=== PATIENT | male | born 1965 | race Caucasian/White ===

== ENCOUNTER → 2021-03-30 11:50 | Outpatient (CLI) | payer OTHER, SELFPAY ==
[2021-03-30 19:08] LABS: Hemoglobin A1C% w Est Avg Glu 7.5 % (4.0-6.0)
[2021-03-30 19:28] LABS: TSH w/ Reflex to FT4 2.66 uIU/mL (0.47-4.68)
== END ==
PROVIDERS: PCP Family Medicine; Referring Provider Physician Assistant Medical; Visit Provider Physician Assistant Medical
DX: E78.5 Hyperlipidemia, unspecified (principal); I10 Essential (primary) hypertension; R73.9 Hyperglycemia, unspecified
CPT/HCPCS: 83036; 84443

== ENCOUNTER → 2021-03-31 09:03 | Outpatient (CLI) | payer OTHER, SELFPAY ==
[2021-04-04 08:35] LABS: Fecal Immunochemical Test Negative (Negative)
== END ==
PROVIDERS: PCP Family Medicine; Referring Provider Physician Assistant Medical; Visit Provider Physician Assistant Medical
DX: E78.5 Hyperlipidemia, unspecified (principal); I10 Essential (primary) hypertension; R73.9 Hyperglycemia, unspecified
CPT/HCPCS: 82274

== ENCOUNTER → 2021-07-18 14:48 | Outpatient (CLI) | payer OTHER, SELFPAY | PROVIDERS: PCP Physician Assistant Medical; Visit Provider Family Medicine | DX: J02.9 Acute pharyngitis, unspecified (principal) | CPT/HCPCS: 87070; 87077; 87147; 87186 ==

== ENCOUNTER → 2021-07-29 08:23 | Outpatient (CLI) | payer OTHER, SELFPAY ==
[2021-07-29 21:59] LABS: COVID19 - ORCAS (NP or Nasal) Negative (Negative)
== END ==
PROVIDERS: PCP Physician Assistant Medical; Visit Provider Physician Assistant Medical
DX: Z20.822 Contact with and (suspected) exposure to COVID-19 (principal)
CPT/HCPCS: U0003

== ENCOUNTER → 2021-10-11 08:20 | Outpatient (CLI) | payer OTHER, SELFPAY | PROVIDERS: PCP Physician Assistant Medical; Visit Provider Physician Assistant | DX: J02.9 Acute pharyngitis, unspecified (principal) | CPT/HCPCS: 87070 ==

== ENCOUNTER → 2022-02-13 16:27 | Outpatient (CLI) | payer OTHER, SELFPAY | PROVIDERS: PCP Physician Assistant Medical; Visit Provider Physician Assistant | DX: R31.9 Hematuria, unspecified (principal) | CPT/HCPCS: 87086 ==

== ENCOUNTER 2022-02-15 13:59 | Emergency (ER) | payer OTHER, SELFPAY ==
[2022-02-15 14:24] VITALS: BP 177/86; PULSE 100; RESP 15; TEMP 36.1; O2SAT 98; BMI 38.2
[2022-02-15 15:02] LABS: Appearance Urine UA CLEAR; Bilirubin Urine UA NEGATIVE (NEGATIVE); Color Urine UA YELLOW; Glucose Urine UA TRACE g/dL (Negative); Ketones Urine UA NEGATIVE (NEGATIVE); Leukocyte Esterase Urine UA NEGATIVE (NEGATIVE); Nitrite Urine UA NEGATIVE (Negative); Occult Blood Urine UA 1+ (Negative); Protein Urine UA NEGATIVE (Negative); Urobilinogen Urine UA 0.2 E.U./dL (0.2)
[2022-02-15 15:35] LABS: Bacteria Urine None Seen; Culture Indicated Urine Cult Not Indicated; RBC Urine 1-5/HPF (0-5/HPF); Squamous Epithelial Cell Urine None Seen (0-5/HPF); WBC Urine None Seen (0-5/HPF)
[2022-02-15 16:56] LABS: Prothrombin Time 11.8 SECONDS (10.1-12.7)
[2022-02-15 17:15] LABS: Add Manual Diff / Slide Review NO; Basophils Absolute Auto 0 /uL (0-100); Basophils Percent Auto 0.7 % (0-2); Eosinophils Absolute Auto 100 /uL (0-450); Eosinophils Percent Auto 2.1 % (2-4); Hematocrit 46.8 % (41-53); Lymphocytes Absolute Auto 1400 /uL (1100-4500); Lymphocytes Percent Auto 20.8 % (25-40); Mean Corpuscular HGB Conc 34.1 % (30-36); Mean Corpuscular Hemoglobin 29.3 PG (26-34); Monocytes Absolute Auto 600 /uL (0-900); Monocytes Percent Auto 8.4 % (3-14); Neutrophils Absolute Auto 4700 /uL (1500-7000); Platelet Count 188 X10^3/uL (150-400); Red Blood Cell Count 5.44 X10^6/uL (4.5-5.9); Red Cell Distribution Width 13.4 % (11.6-14.8)
[2022-02-15 17:47] LABS: Alanine Aminotransferase 52 IU/L (<50); Albumin 4.5 g/dL (3.5-5.0); Albumin Globulin Ratio 1.5 (1.0-2.8); Alkaline Phosphatase 78 U/L (38-126); Aspartate Aminotransferase 33 IU/L (17-59); BUN Creatinine Ratio 23.8 (6-22); Bilirubin Total 0.7 mg/dL (0.2-1.3); Blood Urea Nitrogen 20 mg/dL (9-20); Calcium 9.9 mg/dL (8.4-10.2); Carbon Dioxide 30 mmol/L (22-32); Chloride 98 mmol/L (98-107); Estimated Glomerular Filt Rate > 60 mL/min (>60); Globulin 3.1 g/dL (1.7-4.1); Glucose 128 mg/dL (70-100); HEMOLYSIS 41 (0-50); Lipase 42 U/L (23-300); Potassium 3.8 mmol/L (3.4-5.1); Sodium 136 mmol/L (137-145); Total Protein 7.6 g/dL (6.3-8.2)
--- NOTE | 2022-02-15 19:35 | ED_ITS ---
HPI - General Adult General Chief complaint: Abdominal Pain Stated complaint: abd pain after fall/injury Time Seen by Provider: 02/15/22 19:34 Source: patient Mode of arrival: Ambulatory History of Present Illness HPI narrative: 56-year-old gentleman with a history of hypertension and diabetes had a fall, mechanical, on February 12 where he landed flat on his back. He was able to get and go about his daily routine but following day he was having increasing pain. He was seen in the clinic on [place] with x-rays done that did not show any acute bony abnormalities. At the time he was noted to have hematuria and that hematuria has persisted. Pain has essentially resolved but concern for intra-abdominal pathology secondary to the fall continues given the persistent hematuria. Denies any fever, cough, chills, chest pain, palpitations, abdominal pain, vomiting or diarrhea. Related Data Previous Rx's Medication Instructions Recorded cetirizine 10 mg tablet (Zyrtec) 10 mg PO DAILY PRN allergy 03/30/21 symptoms #90 tabs hydrochlorothiazide 25 mg tablet 25 mg PO DAILY #90 tabs 03/30/21 losartan 100 mg tablet 100 mg PO DAILY #90 tabs 03/30/21 metformin 500 mg tablet See Rx Instructions .Route 10/11/21 .COMPLEX #90 tabs nirmatrelvir 300 mg (150 mg See Rx Instructions PO .COMPLEX 11/15/21 x2)-ritonavir 100 mg tablet,dose #30 ea pack(EUA) (Paxlovid) cyclobenzaprine 10 mg tablet 10 mg PO TID PRN painful muscle 02/13/22 spasm #15 tabs hydrocodone 10 mg-acetaminophen 1 tab PO BEDTIME PRN pain #5 tabs 02/13/22 325 mg tablet Allergies Allergy/AdvReac Type Severity Reaction Status Date / Time lisinopril [LISINOPRIL] Allergy Unknown Verified 02/15/22 14:23 Review of Systems Review of Systems Narrative: Remainder of complete review of systems is otherwise unremarkable except for that included in the HPI. Patient History Medical History (Updated 02/15/22 @ 22:04 by Brandi Rucker MD) Allergies (~1965) Eczema (~1965) Encounter for CDL (commercial driving license) exam Encounter for examination for driving license Kidney stones Shoulder pain (~2014) Wears glasses Surgical History Anesthesia History of appendectomy (~1993) History of cholecystectomy (~1995) Social History Smoking Status: Never smoker Smoking Status: Never smoker alcohol intake frequency: holidays/special occasions only Substance Use Type: does not use Exam Initial Vital Signs Initial Vital Signs: Vital Signs Temperature 97.0 F L 02/15/22 14:24 Pulse Rate 100 H 02/15/22 14:24 Respiratory Rate 15 02/15/22 14:24 Blood Pressure 177/86 H 02/15/22 14:24 Pulse Oximetry 98 02/15/22 14:24 Oxygen Delivery Method 02/15/22 14:24 General: Healthy appearing, in no acute distress. Able to give a complete and coherent history. Well-nourished well-developed HEENT: Moist mucous membranes, normal sclera with reactive pupils, Respiratory: Lungs are clear to auscultation, no wheezing no rales no rhonchi. Full and symmetrical air movement Cardiac: Regular rate and rhythm no murmurs no bruits Abdomen: Soft, nontender, good bowel tones, no flank pain Spine: He has some resolving ecchymosis at the base of his spine over his sacrum. There is no skin breakdown and minimal tenderness to palpation at that site. Skin: Warm and dry, no rashes Neurologic: Grossly neurologically intact with no obvious asymmetries or abnormalities Extremities: No trauma, well perfused Psych: Cooperative, appropriate insight and affect Course Orders Ordered: ED Orders 02/15/22 14:28 EKG-12 Lead Stat 02/15/22 14:30 Urinalysis and Microscopic Stat 02/15/22 16:40 Complete Blood Count AUTO DIFF Stat Comprehensive Metabolic Panel Stat Lipase Stat Prothrombin Time INR Stat 02/15/22 19:47 CT abdomen pelvis w con Stat Vital Signs Vital signs: Vital Signs - 8 hr 02/15/22 14:24 02/15/22 20:14 02/15/22 20:14 Temperature 97.0 F L Pulse Rate 100 H 99 H Respiratory Rate 15 Blood Pressure 177/86 H 166/91 H Pulse Oximetry 98 98 Oxygen Delivery Method Room Air Room Air Medical Decision Making Lab Data Result diagrams: 02/15/22 16:40 12/07/22 16:40 Labs: Lab Results 02/15/22 02/15/22 02/15/22 Range/Units 14:30 16:40 16:40 WBC 7.0 (4.5-11.0) X10^3/uL RBC 5.44 (4.5-5.9) X10^6/uL Hgb 16.0 (13.5-17.5) g/dL Hct 46.8 (41-53) % MCV 86.0 (80-100) fL MCH 29.3 (26-34) PG MCHC 34.1 (30-36) % RDW 13.4 (11.6-14.8) % Plt Count 188 (150-400) X10^3/uL Neut % (Auto) 68.0 (50-75) % Lymph % (Auto) 20.8 L (25-40) % [place] % (Auto) 8.4 (3-14) % Eos % (Auto) 2.1 (2-4) % Baso % (Auto) 0.7 (0-2) % Neut # (Auto) 4700 (2395-8907) /uL Lymph # (Auto) 1400 (7201-0526) /uL [place] # (Auto) 600 (0-900) /uL Eos # (Auto) 100 (0-450) /uL Baso # (Auto) 0 (0-100) /uL PT 11.8 (10.1-12.7) SECONDS INR 1.0 (0.9-1.3) Sodium (137-145) mmol/L Potassium (3.4-5.1) mmol/L Chloride (98-107) mmol/L Carbon Dioxide (22-32) mmol/L BUN (9-20) mg/dL Creatinine (0.66-1.25) mg/dL Estimated GFR (>60) mL/min BUN/Creatinine Ratio (6-22) Glucose (70-100) mg/dL Calcium (8.4-10.2) mg/dL Total Bilirubin (0.2-1.3) mg/dL AST (17-59) IU/L ALT (<50) IU/L Alkaline Phosphatase (38-126) U/L Total Protein (6.3-8.2) g/dL Albumin (3.5-5.0) g/dL Globulin (1.7-4.1) g/dL Albumin/Globulin Ratio (1.0-2.8) Lipase (23-300) U/L Urine Color Yellow Urine Appearance Clear Urine pH 5.0 (4.5-8.0) Ur Specific [place] 1.020 (1.000-1.035) Urine Protein Negative (Negative) Urine Glucose (UA) Trace H (Negative) g/dL Urine Ketones Negative (NEGATIVE) Urine Occult Blood 1+ H (Negative) Urine Nitrate Negative (Negative) Urine Bilirubin Negative (NEGATIVE) Urine Urobilinogen 0.2 (0.2) E.U./dL Ur Leukocyte Esterase Negative (NEGATIVE) Urine RBC 1-5/hpf (0-5/HPF) Urine WBC None seen (0-5/HPF) Ur Squamous Epith Cells None seen (0-5/HPF) Urine Bacteria None seen (None) Ur Culture Indicated? Cult not indicated 02/15/22 Range/Units 16:40 WBC (4.5-11.0) X10^3/uL RBC (4.5-5.9) X10^6/uL Hgb (13.5-17.5) g/dL Hct (41-53) % MCV (80-100) fL MCH (26-34) PG MCHC (30-36) % RDW (11.6-14.8) % Plt Count (150-400) X10^3/uL Neut % (Auto) (50-75) % Lymph % (Auto) (25-40) % [place] % (Auto) (3-14) % Eos % (Auto) (2-4) % Baso % (Auto) (0-2) % Neut # (Auto) (8004-2656) /uL Lymph # (Auto) (6935-4534) /uL [place] # (Auto) (0-900) /uL Eos # (Auto) (0-450) /uL Baso # (Auto) (0-100) /uL PT (10.1-12.7) SECONDS INR (0.9-1.3) Sodium 136 L (137-145) mmol/L Potassium 3.8 (3.4-5.1) mmol/L Chloride 98 (98-107) mmol/L Carbon Dioxide 30 (22-32) mmol/L BUN 20 (9-20) mg/dL Creatinine 0.84 (0.66-1.25) mg/dL Estimated GFR > 60 (>60) mL/min BUN/Creatinine Ratio 23.8 H (6-22) Glucose 128 H (70-100) mg/dL Calcium 9.9 (8.4-10.2) mg/dL Total Bilirubin 0.7 (0.2-1.3) mg/dL AST 33 (17-59) IU/L ALT 52 H (<50) IU/L Alkaline Phosphatase 78 (38-126) U/L Total Protein 7.6 (6.3-8.2) g/dL Albumin 4.5 (3.5-5.0) g/dL Globulin 3.1 (1.7-4.1) g/dL Albumin/Globulin Ratio 1.5 (1.0-2.8) Lipase 42 (23-300) U/L Urine Color Urine Appearance Urine pH (4.5-8.0) Ur Specific [place] (1.000-1.035) Urine Protein (Negative) Urine Glucose (UA) (Negative) g/dL Urine Ketones (NEGATIVE) Urine Occult Blood (Negative) Urine Nitrate (Negative) Urine Bilirubin (NEGATIVE) Urine Urobilinogen (0.2) E.U./dL Ur Leukocyte Esterase (NEGATIVE) Urine RBC (0-5/HPF) Urine WBC (0-5/HPF) Ur Squamous Epith Cells (0-5/HPF) Urine Bacteria (None) Ur Culture Indicated? Imaging Data CT scan - abdomen/pelvis: Radiologist's Impression: FINDINGS: Image quality: Excellent. Lung bases: Unremarkable. Heart: Heart is normal in size. ABDOMEN: Liver: No mass lesion. Gallbladder: Surgically absent. Biliary ducts: No biliary ductal dilatation. Pancreas: Unremarkable. Spleen: Normal in size. Adrenal Glands: No adrenal nodules. Kidneys and Ureters: There is an obstructing stone measuring up to 0.4 cm within the proximal right ureter with associated mild right hydronephrosis. A nonobstructing 0.3 cm stone is also demonstrated within the inferior pole of the right kidney. There is no left hydronephrosis. A 0.3 cm nonobstructing stone is also demonstrated in the left kidney. Left ureter is nondistended. Stomach and Bowel: Stomach, small bowel loops, and colon are normal in caliber and wall thickness. No pericecal inflammatory changes to suggest appendicitis. There is colonic diverticulosis without acute diverticulitis. Peritoneum: No abnormal intraperitoneal fluid. No free air. Ventral Wall: No hernia. Abdominal Nodes: No retroperitoneal or mesenteric adenopathy by size criteria. Vessels: Aorta and inferior vena cava are normal in size. PELVIS: Pelvic Organs: Unremarkable. Bladder: Unremarkable. Pelvic Nodes: No enlarged lymph nodes. Miscellaneous: No inguinal hernias are seen. Bones: Visualized osseous structures demonstrate no suspicious focal lesions. IMPRESSION: 1. Obstructing proximal right ureteral stone with associated mild right hydronephrosis. 2. Additional nonobstructing bilateral renal stones as described. Dictated by: Xander Wayne M.D. on 02/15/2022 at 20:14 MDM Narrative Medical decision making narrative: 56-year-old gentleman with a mechanical fall 3 days ago hematuria noted at the time persistent hematuria comes in for further evaluation. No evidence of bony injury however CT scan of the abdomen does reveal a right ureteral stone with mild hydronephrosis. I suspect that this is a complete explanation for his hematuria. Please that the pain has completely resolved however will need to more completely address the stone. He started on tamsulosin will be given pain medications to have at home should he have recurrent issues and will recommend follow-up with Urology. You will also be given a strainer to use along with discussion and instructions on anticipated course of resolution. There is no evidence of actual renal injury, hepatic fracture were intra-abdominal bleeding. He is safe for discharge home Discharge Plan Departure Patient Disposition: Home Clinical Impression: Ureterolithiasis Instructions: DI for Kidney Stones Activity Restrictions/Additional Instructions: Thank you for coming in today So you do have a small kidney stone on the right side. I suspect that it is completely unrelated to your fall on Sunday. I am going to suggest that you strain your urine so you can see when you do pass that small stone. Once you have passed it you no longer need to take Flomax. In the meantime daily Flomax will increase the probability that you are able to pass the stone without any complication. Using 400 mg of ibuprofen (2 [id number] pills) and 1 Tylenol every 6 hours can be very helpful in controlling pain. Please call to schedule an appointment with Urology at [phone]. If you find that you are getting worse or develop any new symptoms, please feel free to return to the emergency department for further evaluation. Prescriptions: No Action metformin 500 mg tablet See Rx Instructions .ROUTE .COMPLEX Qty: 90 1RF Dose Instruction: TAKE ONE TABLET BY MOUTH EVERY DAY Rx Instructions: TAKE ONE TABLET BY MOUTH EVERY DAY Paxlovid (EUA) 300 mg (150 mg x 2)-100 mg tablets,dose pack See Rx Instructions PO .COMPLEX Qty: 30 0RF Rx Instructions: take TWO 150 mg tablets of nirmatrelvir with ONE 100 mg tablet of ritonavir twice daily for 5 days PO hydrochlorothiazide 25 mg tablet 25 mg PO DAILY Qty: 90 3RF losartan 100 mg tablet 100 mg PO DAILY Qty: 90 3RF cetirizine [Zyrtec] 10 mg tablet 10 mg PO DAILY PRN (Reason: allergy symptoms) Qty: 90 3RF cyclobenzaprine 10 mg tablet 10 mg PO TID PRN (Reason: painful muscle spasm) Qty: 15 0RF hydrocodone-acetaminophen 10-325 mg tablet 1 tab PO BEDTIME PRN (Reason: pain) Qty: 5 0RF Referrals: Giovanna Garces PA-C [Primary Care Provider] -
--- NOTE | 2022-02-15 19:47 | DI.CT.S_ITS ---
PROCEDURE: CT ABDOMEN PELVIS W CON INDICATIONS: fall /, persistent RUQ pain and hematuria TECHNIQUE: After the administration of IV contrast, axial sections were acquired from the lung bases to the pubic symphysis. Coronal and sagittal reformats were performed. For radiation dose reduction, the following was used: automated exposure control, adjustment of mA and/or kV according to patient size. COMPARISON: None. FINDINGS: Image quality: Excellent. Lung bases: Unremarkable. Heart: Heart is normal in size. ABDOMEN: Liver: No mass lesion. Gallbladder: Surgically absent. Biliary ducts: No biliary ductal dilatation. Pancreas: Unremarkable. Spleen: Normal in size. Adrenal Glands: No adrenal nodules. Kidneys and Ureters: There is an obstructing stone measuring up to 0.4 cm within the proximal right ureter with associated mild right hydronephrosis. A nonobstructing 0.3 cm stone is also demonstrated within the inferior pole of the right kidney. There is no left hydronephrosis. A 0.3 cm nonobstructing stone is also demonstrated in the left kidney. Left ureter is nondistended. Stomach and Bowel: Stomach, small bowel loops, and colon are normal in caliber and wall thickness. No pericecal inflammatory changes to suggest appendicitis. There is colonic diverticulosis without acute diverticulitis. Peritoneum: No abnormal intraperitoneal fluid. No free air. Ventral Wall: No hernia. Abdominal Nodes: No retroperitoneal or mesenteric adenopathy by size criteria. Vessels: Aorta and inferior vena cava are normal in size. PELVIS: Pelvic Organs: Unremarkable. Bladder: Unremarkable. Pelvic Nodes: No enlarged lymph nodes. Miscellaneous: No inguinal hernias are seen. Bones: Visualized osseous structures demonstrate no suspicious focal lesions. IMPRESSION: 1. Obstructing proximal right ureteral stone with associated mild right hydronephrosis. 2. Additional nonobstructing bilateral renal stones as described. Dictated by: Xander Wayne M.D. on 02/15/2022 at 20:14 Approved by: Xander Wayne M.D. on 02/15/2022 at 20:20
[2022-02-15 20:14] VITALS: BP 166/91; PULSE 99; O2SAT 98
[2022-02-15 22:17] VITALS: O2SAT 98
[2022-02-15 22:18] VITALS: BP 155/92; PULSE 91; O2SAT 98
[2022-02-15] MEDS: TAMSULOSIN 0.4 MG CAPSULE PO (22:23)
== END 2022-02-15 22:25 | disposition home or self-care (01) ==
PROVIDERS: Emergency Medicine; Emergency Provider Emergency Medicine; PCP Physician Assistant
DX: N20.1 Calculus of ureter (principal); R31.9 Hematuria, unspecified
CPT/HCPCS: 74177; 80053; 81001; 83690; 85025; 85610; 99284; Q9967

== ENCOUNTER → 2022-06-07 09:26 | Outpatient (CLI) | payer OTHER, SELFPAY ==
[2022-06-07 20:33] LABS: Alanine Aminotransferase 38 IU/L (<50); Albumin 3.9 g/dL (3.5-5.0); Albumin Globulin Ratio 1.4 (1.0-2.8); Alkaline Phosphatase 78 U/L (38-126); Aspartate Aminotransferase 26 IU/L (17-59); Bilirubin Total 0.8 mg/dL (0.2-1.3); Blood Urea Nitrogen 16 mg/dL (9-20); Calcium 9.8 mg/dL (8.4-10.2); Carbon Dioxide 31 mmol/L (22-32); Chloride 99 mmol/L (98-107); Estimated Glomerular Filt Rate > 60 mL/min (>60); Globulin 2.8 g/dL (1.7-4.1); Glucose 163 mg/dL (70-100); HEMOLYSIS < 15 (0-50); Potassium 3.7 mmol/L (3.4-5.1); Sodium 137 mmol/L (137-145); Total Protein 6.7 g/dL (6.3-8.2)
[2022-06-09 05:00] LABS: x Labcorp Estim. Avg Glu (eAG) 180 mg/dL (.); x Labcorp Hemoglobin A1c 7.9 % (4.8-5.6)
== END ==
PROVIDERS: PCP Physician Assistant; Visit Provider Physician Assistant
DX: R35.0 Frequency of micturition (principal); R73.9 Hyperglycemia, unspecified; Z12.5 Encounter for screening for malignant neoplasm of prostate; Z79.899 Other long term (current) drug therapy
CPT/HCPCS: 80053; 83036; 87086; G0103

== ENCOUNTER → 2022-06-22 09:45 | Outpatient (CLI) | payer OTHER, SELFPAY ==
[2022-06-26 14:56] LABS: Fecal Immunochemical Test Negative (Negative)
== END ==
PROVIDERS: PCP Physician Assistant; Visit Provider Physician Assistant
DX: Z12.11 Encounter for screening for malignant neoplasm of colon (principal)
CPT/HCPCS: 82274

== ENCOUNTER → 2022-07-04 11:34 | Outpatient (CLI) | payer OTHER, SELFPAY ==
--- NOTE | 2022-07-04 | DI.CT.S_ITS ---
PROCEDURE: CT IVP A/P W/WO INDICATIONS: Hematuria, unspecified TECHNIQUE: Optional 5 mm thick noncontrast images acquired from the diaphragm to the symphysis pubis. After the administration of intravenous contrast, 5 mm thick images acquired from the diaphragm to the symphysis pubis after a 10-minute delay. 2 mm thick coronal and sagittal reformats were then performed of the kidneys and ureters. For radiation dose reduction, the following was used: automated exposure control, adjustment of mA and/or kV according to patient size. COMPARISON: [facility], CT, CT ABDOMEN PELVIS W CON, 02/15/2022, 19:57. FINDINGS: Image quality: Excellent. Lung bases: Lung bases are clear. Heart size is normal. Urinary system: Both kidneys are normal size. There is minor right hydronephrosis. Nonobstructing right lower pole 4 mm calcification and nonobstructing 3 mm left midpole calcification are present. No hydroureter or ureteral calcifications. No suspicious renal parenchymal mass. The opacified collecting systems are normal without filling defects. The urinary bladder is normal without stones or wall thickening. No visible intraluminal masses. Other solid organs: Mild hepatosplenomegaly. The liver is 19.3 cm. The spleen is 17.8 cm. The gallbladder surgically absent. The pancreas and adrenal glands are normal. Peritoneum and bowel: Bowel loops demonstrate normal wall thickness and caliber. No free fluid or air. Nodes and vessels: Several periceliac and sergio caval shotty lymph nodes are noted. There is subtle fat stranding at the base of the small bowel mesentery and several shoddy mesenteric lymph nodes, slightly larger compared to the prior study. No bulky adenopathy or mass. Abdominal wall: Tiny fat containing periumbilical hernia. Pelvis: Mildly enlarged prostate gland. No inguinal hernias. No bulky pelvic adenopathy. Bones: No suspicious bony lesions. No vertebral body compression fractures. IMPRESSION: 1. Stable bilateral nonobstructing intrarenal calculi. 2. Interval resolution of prior right hydronephrosis. 3. Slight increase in nonspecific portacaval, periceliac, and mesenteric borderline lymphadenopathy. No bulky enlargement of nodes. These are remarkable more for presence and trace adjacent fat stranding rather than size. Consider hematologic correlation. Dictated by: Karen Noriega M.D. on 07/04/2022 at 15:49 Approved by: Karen Noriega M.D. on 07/04/2022 at 16:03
== END ==
PROVIDERS: PCP Physician Assistant; Referring Provider Physician Assistant; Visit Provider Physician Assistant
DX: N20.0 Calculus of kidney (principal); R35.0 Frequency of micturition; R31.9 Hematuria, unspecified; R31.29 Other microscopic hematuria; R39.9 Unspecified symptoms and signs involving the genitourinary system; Z77.22 Contact with and (suspected) exposure to environmental tobacco smoke (acute) (chronic)
CPT/HCPCS: 51798; 74178; 81002; Q9967

== ENCOUNTER → 2022-08-29 14:30 | Outpatient (CLI) | payer OTHER, SELFPAY ==
[2022-08-29 19:15] LABS: Hematocrit 41.8 % (41-53); Hemoglobin 14.4 g/dL (13.5-17.5); Mean Corpuscular HGB Conc 34.4 % (30-36); Mean Corpuscular Hemoglobin 29.3 PG (26-34); Mean Corpuscular Volume 85.1 fL (80-100); Platelet Count 187 X10^3/uL (150-400); Red Blood Cell Count 4.92 X10^6/uL (4.5-5.9); Red Cell Distribution Width 13.7 % (11.6-14.8); White Blood Cell Count 6.6 X10^3/uL (4.5-11.0)
[2022-08-29 19:22] LABS: Lactate Dehydrogenase 157 U/L (120-246); Uric Acid 4.8 mg/dL (3.5-8.5)
[2022-08-29 19:34] LABS: Neutrophils Absolute Manual 4554 /uL (3000-5900); RBC Morphology Normal Morphology; Total Cells Counted 100
[2022-08-29 19:59] LABS: Erythrocyte Sedimentation Rate 7 MM/HR (0-15)
[2022-08-30 16:48] LABS: HIV 1 & 2 Ab/Ag 4th Gen Combo NEGATIVE (NEGATIVE)
== END ==
PROVIDERS: PCP Physician Assistant; Visit Provider Physician Assistant
DX: R59.0 Localized enlarged lymph nodes (principal)
CPT/HCPCS: 83615; 84550; 85025; 85651; 87389

== ENCOUNTER → 2022-11-07 13:00 | Outpatient (CLI) | payer OTHER, SELFPAY ==
[2022-11-07 21:01] LABS: Hemoglobin A1C% w Est Avg Glu 7.9 % (4.0-6.0)
== END ==
PROVIDERS: PCP Physician Assistant; Visit Provider Physician Assistant
DX: R73.9 Hyperglycemia, unspecified (principal)
CPT/HCPCS: 83036

== ENCOUNTER 2023-01-17 12:15 | Emergency (ER) | payer OTHER, SELFPAY ==
[2023-01-17 12:21] VITALS: BP 179/86; PULSE 92; RESP 16; TEMP 36.3; O2SAT 98; BMI 38.2
--- NOTE | 2023-01-17 12:23 | DI.CT.S_ITS ---
PROCEDURE: CT KIDNEY URETER BLADDER (KUB) INDICATIONS: Left flank pain eval for stone TECHNIQUE: Axial sections were acquired from the lung bases to the pubic symphysis. Coronal and sagittal reformats were performed. For radiation dose reduction, the following was used: automated exposure control, adjustment of mA and/or kV according to patient size. COMPARISON: [facility], CT, CT IVP A/P W/WO, 07/04/2022, 11:38. FINDINGS: Image quality: Excellent. Lung bases: Unremarkable. Heart: No significant findings. URINARY: Right Kidney: 3 mm lower pole stone without hydronephrosis. Right Ureter: No hydroureter. Left Kidney: Mild hydronephrosis without stone. Perinephric stranding is present. Left Ureter: Mild hydroureter with 3 mm stone at the UVJ. Bladder: Normal wall thickness. No stones. ABDOMEN: Liver: Unremarkable. Gallbladder: Removed. Biliary ducts: Unremarkable. Pancreas: Unremarkable. Spleen: Unremarkable. Adrenal Glands: Right adrenal nodularity, unchanged. Stomach and Bowel: Stomach, small bowel loops, and colon are nonobstructive. Diverticula are present without inflammatory change. Peritoneum: No abnormal intraperitoneal fluid. No free air. Ventral Wall: No hernia. Abdominal Nodes: No enlarged retroperitoneal or mesenteric lymph nodes. Vessels: Aorta and inferior vena cava are normal in size. PELVIS: Pelvic Organs: Prostate hypertrophy. Pelvic Nodes: Unremarkable. Miscellaneous: Bilateral inguinal hernias are seen. Bones: Unremarkable. IMPRESSION: Mild left hydronephrosis and hydroureter secondary to 3 mm calcification at the ureterovesicular junction. Dictated by: Jeimy Arizmendi M.D. on 01/17/2023 at 13:44 Approved by: Jeimy Arizmendi M.D. on 01/17/2023 at 13:50
--- NOTE | 2023-01-17 12:34 | ED.GENADULT ---
HPI - General Adult General Chief complaint: Urogenital-Male Stated complaint: L flank pain Time Seen by Provider: 01/17/23 12:23 Source: patient and EMS Mode of arrival: EMS Limitations: no limitations History of Present Illness HPI narrative: Patient is a 57-year-old male who is here for evaluation of left-sided flank pain. He states the pain started this morning and progressively worse throughout the day until he received pain medication prior to arrival. He has had kidney stones in the past. This does feel like a prior stone. He did have some hematuria within the past 24 hours. Some nausea but no vomiting. No fevers. Related Data Previous Rx's Medication Instructions Recorded cetirizine 10 mg tablet (Zyrtec) 10 mg PO DAILY PRN allergy 03/30/21 symptoms #90 tabs losartan 100 mg tablet See Rx Instructions .Route 06/19/22 .COMPLEX #90 tabs hydrochlorothiazide 25 mg tablet See Rx Instructions .Route 07/03/22 .COMPLEX #90 tabs metformin 500 mg tablet 500 mg PO BID #180 tabs 11/08/22 nirmatrelvir 300 mg (150 mg See Rx Instructions PO .COMPLEX 11/17/22 x2)-ritonavir 100 mg tablet,dose #30 ea pack (Paxlovid) tamsulosin 0.4 mg capsule 0.4 mg PO BEDTIME #90 caps 11/20/22 hydrocodone 5 mg-acetaminophen 325 1 tab PO Q4-6H PRN pain #14 tabs 01/17/23 mg tablet ondansetron 4 mg disintegrating 4 mg PO Q6H PRN nausea and 01/17/23 tablet vomiting #14 tabs Allergies Allergy/AdvReac Type Severity Reaction Status Date / Time lisinopril [LISINOPRIL] Allergy Unknown Verified 01/17/23 12:24 Review of Systems Constitutional Constitutional: Reports system reviewed and no additional complaints, except as documented Cardiovascular Cardiovascular: Reports system reviewed and no additional complaints, except as documented Gastrointestinal Gastrointestinal: Reports system reviewed and no additional complaints, except as documented Genitourinary Genitourinary: Reports system reviewed and no additional complaints, except as documented Musculoskeletal Musculoskeletal: Reports system reviewed and no additional complaints, except as documented Integumentary/Breasts Skin/Breast: Reports system reviewed and no additional complaints, except as documented Hematologic/Lymphatic On Anticoagulants: No Patient History Medical History Lower urinary tract symptoms Secondhand smoke exposure Hx of diabetes mellitus Kidney stones Encounter for CDL (commercial driving license) exam Wears glasses Eczema (~1965) Allergies (~1965) Shoulder pain (~2014) Encounter for examination for driving license Surgical History History of removal of calculus of renal pelvis through percutaneous nephrostomy Hx of hernia repair Hx of lithotripsy Anesthesia History of cholecystectomy (~1995) History of appendectomy (~1993) Social History marital status: occupational status: employed Smoking Status: Never smoker caffeine: Yes Type(s) of exercise: walking frequency: daily Smoking Status: Never smoker alcohol intake frequency: holidays/special occasions only Substance Use Type: does not use Exam Initial Vital Signs Initial Vital Signs: Vital Signs Temperature 97.3 F L 01/17/23 12:21 Pulse Rate 92 H 01/17/23 12:21 Respiratory Rate 16 01/17/23 12:21 Blood Pressure 179/86 H 01/17/23 12:21 Pulse Oximetry 98 01/17/23 12:21 Oxygen Delivery Method Room Air 01/17/23 12:21 HENMT Head: normal to inspection and normocephalic Resp Effort & Inspection: normal respiratory effort Cardio Rate: regular rate GI Inspection: normal to inspection and non-distended Palpation: soft and No tender Back/Spine/Pelvis Back: No CVA tenderness Neuro General: patient alert and patient awake Course Orders Ordered: ED Orders 01/17/23 12:23 CT kidney ureter bladder (KUB) Stat Urine Culture Stat Urine Microscopic Stat 01/17/23 12:40 Basic Metabolic Panel Stat Complete Blood Count AUTO DIFF Stat Discontinued Medications Hydrocodone Bitart/Acetaminophen (Hydrocodone/Acet 5/325 Tablet) 1 tab PO NOW ONE Stop: 01/17/23 13:39 Last Admin: 01/17/23 13:54 Dose: 1 tab Documented By: OTTO Ketorolac Tromethamine (Ketorolac 30 Mg/Ml Vial) 30 mg IV NOW ONE Stop: 01/17/23 13:39 Last Admin: 01/17/23 13:54 Dose: 30 mg Documented By: OTTO Vital Signs Vital signs: Vital Signs - 8 hr 01/17/23 12:21 Temperature 97.3 F L Pulse Rate 92 H Respiratory Rate 16 Blood Pressure 179/86 H Pulse Oximetry 98 Oxygen Delivery Method Room Air Medical Decision Making Lab Data Lab results reviewed: Yes I reviewed the patient's lab results. 01/17/23 12:40 01/17/23 12:40 Labs: Lab Results 01/17/23 01/17/23 Range/Units 12:23 12:40 WBC 8.8 (4.5-11.0) X10^3/uL RBC 4.80 (4.5-5.9) X10^6/uL Hgb 14.2 (13.5-17.5) g/dL Hct 41.2 (41-53) % MCV 85.8 (80-100) fL MCH 29.6 (26-34) PG MCHC 34.5 (30-36) % RDW 14.4 (11.6-14.8) % Plt Count 159 (150-400) X10^3/uL Neut % (Auto) 83.2 H (50-75) % Lymph % (Auto) 7.2 L (25-40) % Upson % (Auto) 8.4 (3-14) % Eos % (Auto) 0.7 L (2-4) % Baso % (Auto) 0.5 (0-2) % Neut # (Auto) 7300 H (3206-2220) /uL Lymph # (Auto) 600 L (3144-2323) /uL Upson # (Auto) 700 (0-900) /uL Eos # (Auto) 100 (0-450) /uL Baso # (Auto) 0 (0-100) /uL Sodium 137 (137-145) mmol/L Potassium 4.4 (3.4-5.1) mmol/L Chloride 101 (98-107) mmol/L Carbon Dioxide 27 (22-32) mmol/L BUN 17 (9-20) mg/dL Creatinine 1.00 (0.66-1.25) mg/dL Estimated GFR > 60 (>60) mL/min BUN/Creatinine Ratio 17.0 (6-22) Glucose 172 H (70-100) mg/dL Calcium 10.2 (8.4-10.2) mg/dL Urine RBC 10-30/hpf H (0-5/HPF) Urine WBC 1-5/hpf (0-5/HPF) Ur Squamous Epith Cells 1-5 /hpf (0-5/HPF) Urine Bacteria Few (2-10) H (None) Ur Culture Indicated? Specimen cultured Urine Dip Bedside Urine Glucose Negative Bedside Urine Bilirubin - Negative Bedside Urine Ketone - Negative Urine Specific Witherbee 1.030 Bedside Urine Occult Blood +++ Bedside Urine pH 6.0 Bedside Urine Protein + 30 Bedside Urine Urobilinogen - Negative Bedside Urine Nitrite - Negative Bedside Urine Leukocytes - Negative Esterase Point of care testing: Urine Dip Bedside Urine Glucose Negative Bedside Urine Bilirubin - Negative Bedside Urine Ketone - Negative Urine Specific Witherbee 1.030 Bedside Urine Occult Blood +++ Bedside Urine pH 6.0 Bedside Urine Protein + 30 Bedside Urine Urobilinogen - Negative Bedside Urine Nitrite - Negative Bedside Urine Leukocytes - Negative Esterase Imaging Data CT scan - abdomen/pelvis: Radiologist's Impression: PROCEDURE: CT KIDNEY URETER BLADDER (KUB) INDICATIONS: Left flank pain eval for stone TECHNIQUE: Axial sections were acquired from the lung bases to the pubic symphysis. Coronal and sagittal reformats were performed. For radiation dose reduction, the following was used: automated exposure control, adjustment of mA and/or kV according to patient size. COMPARISON: [facility], [place], CT IVP A/P W/WO, 07/04/2022, 11:38. FINDINGS: Image quality: Excellent. Lung bases: Unremarkable. Heart: No significant findings. URINARY: Right Kidney: 3 mm lower pole stone without hydronephrosis. Right Ureter: No hydroureter. Left Kidney: Mild hydronephrosis without stone. Perinephric stranding is present. Left Ureter: Mild hydroureter with 3 mm stone at the UVJ. Bladder: Normal wall thickness. No stones. ABDOMEN: Liver: Unremarkable. Gallbladder: Removed. Biliary ducts: Unremarkable. Pancreas: Unremarkable. Spleen: Unremarkable. Adrenal Glands: Right adrenal nodularity, unchanged. Stomach and Bowel: Stomach, small bowel loops, and colon are nonobstructive. Diverticula are present without inflammatory change. Peritoneum: No abnormal intraperitoneal fluid. No free air. Ventral Wall: No hernia. Abdominal Nodes: No enlarged retroperitoneal or mesenteric lymph nodes. Vessels: Aorta and inferior vena cava are normal in size. PELVIS: Pelvic Organs: Prostate hypertrophy. Pelvic Nodes: Unremarkable. Miscellaneous: Bilateral inguinal hernias are seen. Bones: Unremarkable. IMPRESSION: Mild left hydronephrosis and hydroureter secondary to 3 mm calcification at the ureterovesicular junction MDM Narrative Medical decision making narrative: Left-sided flank pain with a distal 3 mm left-sided UVJ stone that is consistent with the discomfort that he is having today. No signs of urinary tract infection. His kidney functions unremarkable. Will discharge home with symptom control. No indication for admission to the hospital or emergent urologic consultation. He is currently on Flomax at baseline. He was given return precautions. He expressed understanding and agreement. Discharge Plan Departure Patient Disposition: Home Clinical Impression: Left ureteral stone Instructions: DI for Kidney Stones Activity Restrictions/Additional Instructions: Recommend that you continue to take all of your medications as directed. Contact your urologist for a follow-up. Return to the emergency department for new symptoms. Per your request your prescriptions were sent to [facility] which is located here in the hospital. Prescriptions: New hydrocodone-acetaminophen 5-325 mg tablet 1 tab PO Q4-6H PRN (Reason: pain) Qty: 14 0RF ondansetron 4 mg tablet,disintegrating 4 mg PO Q6H PRN (Reason: nausea and vomiting) Qty: 14 0RF No Action losartan 100 mg tablet See Rx Instructions .ROUTE .COMPLEX Qty: 90 3RF Dose Instruction: TAKE ONE TABLET BY MOUTH EVERY DAY Rx Instructions: TAKE ONE TABLET BY MOUTH EVERY DAY hydrochlorothiazide 25 mg tablet See Rx Instructions .ROUTE .COMPLEX Qty: 90 3RF Dose Instruction: TAKE ONE TABLET BY MOUTH EVERY DAY Rx Instructions: TAKE ONE TABLET BY MOUTH EVERY DAY metformin 500 mg tablet 500 mg PO BID Qty: 180 4RF Paxlovid 300 mg (150 mg x 2)-100 mg tablets,dose pack See Rx Instructions PO .COMPLEX Qty: 30 0RF Rx Instructions: take TWO 150 mg tablets of nirmatrelvir with ONE 100 mg tablet of ritonavir twice daily for 5 days PO tamsulosin 0.4 mg capsule 0.4 mg PO BEDTIME Qty: 90 4RF cetirizine [Zyrtec] 10 mg tablet 10 mg PO DAILY PRN (Reason: allergy symptoms) Qty: 90 3RF Referrals: Giovanna Garces PA-C [Primary Care Provider] - Stand Alone Forms: Patient Portal/API
[2023-01-17 12:41] LABS: Bacteria Urine Few (2-10); RBC Urine 10-30/HPF (0-5/HPF); WBC Urine 1-5/HPF (0-5/HPF)
[2023-01-17 12:42] LABS: Culture Indicated Urine Specimen Cultured; Squamous Epithelial Cell Urine 1-5 /HPF (0-5/HPF)
[2023-01-17 12:48] LABS: Add Manual Diff / Slide Review NO; Basophils Absolute Auto 0 /uL (0-100); Basophils Percent Auto 0.5 % (0-2); Eosinophils Absolute Auto 100 /uL (0-450); Eosinophils Percent Auto 0.7 % (2-4); Hematocrit 41.2 % (41-53); Hemoglobin 14.2 g/dL (13.5-17.5); Lymphocytes Absolute Auto 600 /uL (1100-4500); Lymphocytes Percent Auto 7.2 % (25-40); Mean Corpuscular HGB Conc 34.5 % (30-36); Mean Corpuscular Hemoglobin 29.6 PG (26-34); Mean Corpuscular Volume 85.8 fL (80-100); Monocytes Absolute Auto 700 /uL (0-900); Monocytes Percent Auto 8.4 % (3-14); Neutrophils Absolute Auto 7300 /uL (1500-7000); Neutrophils Percent Auto 83.2 % (50-75); Platelet Count 159 X10^3/uL (150-400); Red Cell Distribution Width 14.4 % (11.6-14.8); White Blood Cell Count 8.8 X10^3/uL (4.5-11.0)
[2023-01-17 12:59] LABS: Blood Urea Nitrogen 17 mg/dL (9-20); Calcium 10.2 mg/dL (8.4-10.2); Carbon Dioxide 27 mmol/L (22-32); Chloride 101 mmol/L (98-107); Estimated Glomerular Filt Rate > 60 mL/min (>60); Glucose 172 mg/dL (70-100); HEMOLYSIS < 15 (0-50); Potassium 4.4 mmol/L (3.4-5.1); Sodium 137 mmol/L (137-145)
[2023-01-17] MEDS: KETOROLAC 30 MG/ML VIAL IV (13:54)
[2023-01-17] MEDS: HYDROCODONE/ACET 5/325 TABLET 1 TAB PO (13:54)
[2023-01-17 14:54] VITALS: BP 165/84; PULSE 74; O2SAT 96
== END 2023-01-17 14:53 | disposition home or self-care (01) ==
PROVIDERS: Emergency Provider Emergency Medicine; PCP Physician Assistant
DX: N20.1 Calculus of ureter (principal)
CPT/HCPCS: 36415; 74176; 80048; 81003; 81015; 85025; 87086; 96374; 99284; J1885

== ENCOUNTER → 2023-02-14 11:22 | Outpatient (CLI) | payer OTHER, SELFPAY ==
--- NOTE | 2023-02-14 11:24 | DI.RAD.S_ITS ---
PROCEDURE: XR KUB INDICATIONS: Follow-up kidney stones TECHNIQUE: One view of the abdomen acquired. COMPARISON: [facility], CT, CT KIDNEY URETER BLADDER (KUB), 01/17/2023, 12:40. FINDINGS: Surgical changes and devices: Surgical clips are seen in gallbladder fossa. Bowel: Bowel gas pattern is nonobstructive. Moderate fecal stasis throughout the colon is seen. No gross pneumoperitoneum. Soft tissues: Patient's known tiny 3 mm nonobstructing right renal stone is not definitely seen on this study. Patient's known left UVJ stone is not seen on the current study. Multiple phleboliths are noted in lower pelvis. Visualized solid organ contours appear normal in size. Bones: No suspicious bony lesions. IMPRESSION: Patient's known bilateral renal calculi are not well seen on this study. No gross peritoneal free air. Multiple phleboliths in lower pelvis. Dictated by: Evans Baeza M.D. on 02/14/2023 at 14:24 Approved by: Evans Baeza M.D. on 02/14/2023 at 14:26
== END ==
PROVIDERS: PCP Physician Assistant; Referring Provider Urology; Visit Provider Urology
DX: N20.2 Calculus of kidney with calculus of ureter (principal); R31.29 Other microscopic hematuria; R39.9 Unspecified symptoms and signs involving the genitourinary system; I87.8 Other specified disorders of veins; Z87.442 Personal history of urinary calculi; Z77.22 Contact with and (suspected) exposure to environmental tobacco smoke (acute) (chronic)
CPT/HCPCS: 51798; 74018; 81002; 99214

== ENCOUNTER → 2023-03-02 10:40 | Outpatient (CLI) | payer OTHER, SELFPAY ==
--- NOTE | 2023-03-02 10:42 | DI.CT.S_ITS ---
PROCEDURE: CT PEL WO CON INDICATIONS: Follow-up distal left ureteral stone TECHNIQUE: Noncontrast 3 mm axial sections acquired through the bony pelvis, with coronal and sagittal reformatting. COMPARISON: [facility], CT, CT KIDNEY URETER BLADDER (KUB), 01/17/2023, 12:40. FINDINGS: Image quality: Good diagnostic Lower abdomen: There are colonic diverticula. Partially seen nonobstructing right lower pole renal calculus. No pathologic ascites. Bladder: Previously seen obstructing stone at the left UVJ is not present on today's study. Numerous phleboliths are seen in the pelvis surrounding the bladder. Reproductive organs: Prostate is not well evaluated on this study Rectum: Unremarkable Vessels and lymph nodes: Atherosclerotic calcifications. No pathologic lymphadenopathy or aneurysmal vessel identified. Pelvic wall: Unremarkable Bones: No acute or suspicious osseous finding. There are degenerative changes. IMPRESSION: Previous left UVJ calculus is not seen on today's study. Numerous pelvic phleboliths are present as before. Dictated by: David English M.D. on 03/02/2023 at 13:27 Approved by: David English M.D. on 03/02/2023 at 13:29
== END ==
PROVIDERS: PCP Physician Assistant; Referring Provider Urology; Visit Provider Urology
DX: N20.1 Calculus of ureter (principal)
CPT/HCPCS: 72192

== ENCOUNTER → 2023-04-18 09:23 | Outpatient (CLI) | payer OTHER, SELFPAY ==
[2023-04-18 19:12] LABS: Alanine Aminotransferase 36 IU/L (<50); Albumin 4.2 g/dL (3.5-5.0); Albumin Globulin Ratio 1.6 (1.0-2.8); Alkaline Phosphatase 76 U/L (38-126); Aspartate Aminotransferase 24 IU/L (17-59); BUN Creatinine Ratio 21.3 (6-22); Bilirubin Total 0.8 mg/dL (0.2-1.3); Blood Urea Nitrogen 16 mg/dL (9-20); Calcium 10.2 mg/dL (8.4-10.2); Carbon Dioxide 26 mmol/L (22-32); Chloride 101 mmol/L (98-107); Cholesterol 158 mg/dL (140-199); Estimated Glomerular Filt Rate > 60 mL/min (>60); Globulin 2.7 g/dL (1.7-4.1); Glucose 166 mg/dL (70-100); HDL Cholesterol 36 mg/dL (40-60); HEMOLYSIS < 15 (0-50); LDL Cholesterol Calculated 102 mg/dL (<100); Potassium 3.8 mmol/L (3.4-5.1); Sodium 136 mmol/L (137-145); Total Protein 6.9 g/dL (6.3-8.2); Triglycerides 99 mg/dL (35-150)
[2023-04-18 19:16] LABS: Add Manual Diff / Slide Review NO; Basophils Absolute Auto 0 /uL (0-100); Basophils Percent Auto 0.5 % (0-2); Eosinophils Absolute Auto 100 /uL (0-450); Eosinophils Percent Auto 2.2 % (2-4); Hematocrit 42.7 % (41-53); Hemoglobin 14.7 g/dL (13.5-17.5); Lymphocytes Absolute Auto 1100 /uL (1100-4500); Lymphocytes Percent Auto 19.7 % (25-40); Mean Corpuscular HGB Conc 34.4 % (30-36); Mean Corpuscular Hemoglobin 29.6 PG (26-34); Monocytes Absolute Auto 500 /uL (0-900); Monocytes Percent Auto 8.4 % (3-14); Neutrophils Absolute Auto 4000 /uL (1500-7000); Neutrophils Percent Auto 69.2 % (50-75); Platelet Count 172 X10^3/uL (150-400); Red Blood Cell Count 4.97 X10^6/uL (4.5-5.9); Red Cell Distribution Width 13.9 % (11.6-14.8); White Blood Cell Count 5.8 X10^3/uL (4.5-11.0)
[2023-04-18 19:28] LABS: Creatinine Urine Random 260.3 mg/dL
[2023-04-18 19:31] LABS: Hemoglobin A1C% w Est Avg Glu 7.9 % (4.0-6.0)
[2023-04-18 19:32] LABS: Microalbumi Creatinin Ratio Ur 6.9 ug/mg CR (<30); Microalbumin Urine Random 1.8 mg/dL (0-1.6)
== END ==
PROVIDERS: PCP Physician Assistant; Visit Provider Physician Assistant
DX: E11.9 Type 2 diabetes mellitus without complications (principal); R73.9 Hyperglycemia, unspecified; I10 Essential (primary) hypertension
CPT/HCPCS: 80053; 80061; 82043; 82570; 83036; 85025

== ENCOUNTER → 2023-09-03 13:27 | Outpatient (CLI) | payer OTHER, SELFPAY ==
--- NOTE | 2023-09-03 13:28 | DI.ECHO.S_ITS ---
[facility]+ [facility] : : [address] : : [place] : : [address] : : Phone: [phone] Echocardiogram Report + + :Name: LEVI GLASGOW Study Date: 09/03/2023 Height: 73 in : :[facility] ReadingLocation: Weight: 280 lb : : Gender: Male BSA: 2.5 m2 : :: 1965 Age: 58 yrs BP: 157/97 mmHg: :Reason For Study: MURMUR : :Ordering Physician: NAVIN, : :CLINT Performed By: Brooke Seo : :Referring: CLINT HOLDEN : + + Interpretation Summary The ejection fraction is estimated to be 55-60%. Diastolic parameters suggest probable normal left ventricular diastolic function and normal filling pressures. The right ventricular systolic function is normal. Pulmonary artery pressures cannot be estimated because of the lack of a measurable TR jet velocity. No significant valvular abnormality. Procedure: A two-dimensional transthoracic echocardiogram with color flow and Doppler was performed. The study quality was technically adequate. There is no prior echocardiogram noted for this patient. The patient was in sinus rhythm with heart rates between 67-78 bpm during the exam. Left Ventricle: The left ventricle is normal in size and wall thickness. The ejection fraction is estimated to be 55-60%. There are no obvious focal wall motion abnormalities noted but poor endocardial definition reduces the sensitivity for the detection of such. Diastolic parameters suggest probable normal left ventricular diastolic function and normal filling pressures. Right Ventricle: The right ventricle is mildly dilated. The right ventricular systolic function is normal. Atria: The left atrial size is normal. Right atrial size is normal. There is no Doppler evidence for an interatrial shunt. Mitral Valve: The mitral valve is normal in structure and function. There is trace mitral regurgitation. Aortic Valve: The aortic valve is normal in structure and function. There is no aortic valve stenosis. No aortic regurgitation is present. Tricuspid Valve: The tricuspid valve is normal in structure and function. No tricuspid regurgitation. Pulmonary artery pressures cannot be estimated because of the lack of a measurable TR jet velocity. Pulmonic Valve: The pulmonic valve is not well visualized. There is no pulmonic valvular regurgitation. Great Vessels: The aortic root is normal size. The dimensions of the ascending aorta are normal. The IVC is of normal diameter and collapses greater than 50% with a sniff. This suggests a low right atrial pressure of 3 mm Hg. Pericardium/ Pleura There is no pericardial effusion. There is no pleural effusion. MMode/2D Measurements & Calculations LVIDd: 5.1 cm LVOT diam: 2.1 cm LVIDs: 3.5 cm Ao root diam: 3.8 cm FS: 31.5 % asc Aorta Diam: 3.5 cm IVSd: 1.1 cm Ao Arch Diam (Prox Trans): 3.3 cm LVPWd: 0.97 cm LV murray. diameter/BSA (cm/m^2): 2.1 LV sys. diameter/BSA (cm/m^2): 1.4 LA A2 area: 25.5 cm2 RA long axis: 5.4 cm LA A4 area: 20.5 cm2 RA area: 18.1 cm2 LA length (vol): 5.8 cm RA vol: 51.0 ml LA vol: 75.9 ml RA : 20.6 ml/m2 LA vol index: 30.6 ml/m2 IVC diam: 1.6 cm RVD1 (basal): 4.4 cm TAPSE: 1.9 cm Doppler Measurements & Calculations Ao V2 max: 112.3 cm/sec LVOT Max Quincy: 77.5 cm/sec Ao V2 mean: 77.3 cm/sec LV V1 max P.4 mmHg Ao max P.0 mmHg LV V1 VTI: 17.9 cm Ao mean P.7 mmHg CHANA(I,D): 2.7 cm2 Ao V2 VTI: 23.8 cm CHANA(V,D): 2.5 cm2 sev ratio: 0.75 CHANA indexed to BSA (cm^2/m^2): 1.1 MV E max quincy: 61.5 cm/sec PA V2 max: 71.8 cm/sec MV A max quincy: 57.7 cm/sec PA V2 mean: 51.9 cm/sec MV E/A: 1.1 PA mean P.2 mmHg Med Peak E' Quincy: 6.0 cm/sec PA pr(Accel): 35.3 mmHg E/E' med: 10.3 Lat Peak E' Quincy: 9.5 cm/sec E/E' lat: 6.5 E/e' average: 8.4 MV dec time: 0.17 sec [facility] 63.9 ml Reading Physician:PONCHO
--- NOTE | 2023-09-04 00:41 | DI.NM.S_ITS ---
DATE OF SERVICE: 09/03/2023 PROCEDURE: Exercise stress test. INDICATIONS: Exertional shortness of breath, heart murmur. CARDIAC STRESS: The patient underwent exercise stress test under the supervision of an attending staff. He walked on Tay protocol for 9 minutes and 10 seconds, achieved maximum heart rate of 168, which was 104% of target heart rate. Hypertensive blood pressure response. Resting blood pressure 148/100 and peak blood pressure 230/100. Baseline rhythm was sinus. During stress, no convincing ischemic changes seen. No significant arrhythmias. No anginal symptoms. The patient felt fatigue and some shortness of breath. RAUL -1%. Achieved 10.1 METs of workload. CONCLUSION: Exercise stress test is negative for inducible ischemia. Fair exercise tolerance. Hypertensive blood pressure response with peak blood pressure 230/100 mmHg. No anginal symptoms. No significant arrhythmias. Overall, low-risk exercise stress test. Zachary Telles - [employer]/ana rosa/AY doc#: [id number]/job#: [id number] dd: 09/03/2023 16:54:00 dt: 09/04/2023 00:16:00 DICTATING /COPIES TO: Richelle Lucas MD COPIES MNE: BAILEY;
== END ==
PROVIDERS: PCP Physician Assistant; Referring Provider Internal Medicine Cardiovascular Disease; Visit Provider Internal Medicine Cardiovascular Disease
DX: R01.1 Cardiac murmur, unspecified (principal); R06.09 Other forms of dyspnea; N40.1 Benign prostatic hyperplasia with lower urinary tract symptoms; R39.14 Feeling of incomplete bladder emptying; R39.9 Unspecified symptoms and signs involving the genitourinary system; Z87.442 Personal history of urinary calculi; Z87.898 Personal history of other specified conditions; Z77.22 Contact with and (suspected) exposure to environmental tobacco smoke (acute) (chronic)
CPT/HCPCS: 51798; 81002; 93017; 93306

== ENCOUNTER → 2024-07-15 09:32 | Outpatient (CLI) | payer OTHER, SELFPAY ==
[2024-07-15 19:49] LABS: Add Manual Diff / Slide Review NO; Basophils Absolute Auto 0 /uL (0-100); Basophils Percent Auto 0.3 % (0-2); Eosinophils Absolute Auto 100 /uL (0-450); Eosinophils Percent Auto 2.5 % (2-4); Hematocrit 42.7 % (41-53); Hemoglobin 14.2 g/dL (13.5-17.5); Lymphocytes Absolute Auto 1000 /uL (1100-4500); Lymphocytes Percent Auto 20.6 % (25-40); Mean Corpuscular HGB Conc 33.2 % (30-36); Mean Corpuscular Hemoglobin 28.9 PG (26-34); Mean Corpuscular Volume 87.1 fL (80-100); Monocytes Absolute Auto 500 /uL (0-900); Monocytes Percent Auto 10.6 % (3-14); Neutrophils Absolute Auto 3400 /uL (1500-7000); Platelet Count 157 X10^3/uL (150-400); Red Cell Distribution Width 14.1 % (11.6-14.8); White Blood Cell Count 5.1 X10^3/uL (4.5-11.0)
[2024-07-15 19:55] LABS: Hemoglobin A1C% w Est Avg Glu 7.1 % (4.0-6.0)
[2024-07-15 19:58] LABS: Alanine Aminotransferase 36 IU/L (<50); Albumin 4.1 g/dL (3.5-5.0); Albumin Globulin Ratio 1.7 (1.0-2.8); Alkaline Phosphatase 78 U/L (38-126); Aspartate Aminotransferase 30 IU/L (17-59); Bilirubin Total 0.7 mg/dL (0.2-1.3); Blood Urea Nitrogen 16 mg/dL (9-20); Calcium 9.9 mg/dL (8.4-10.2); Carbon Dioxide 25 mmol/L (22-32); Chloride 101 mmol/L (98-107); Cholesterol 163 mg/dL (140-199); Estimated Glomerular Filt Rate > 60 mL/min (>60); Globulin 2.4 g/dL (1.7-4.1); Glucose 189 mg/dL (70-99); HDL Cholesterol 41 mg/dL (40-60); HEMOLYSIS 16 (0-50); LDL Cholesterol Calculated 106 mg/dL (<100); Potassium 4.3 mmol/L (3.4-5.1); Sodium 137 mmol/L (137-145); Total Protein 6.5 g/dL (6.3-8.2); Triglycerides 79 mg/dL (35-150)
[2024-07-15 20:35] LABS: Prostate Specific Antigen Scrn 1.16 ng/mL (0.1-4.0)
[2024-07-15 20:42] LABS: Creatinine Urine Random 234.34 mg/dL
[2024-07-15 20:47] LABS: Microalbumin Urine Random 1.9 mg/dL (0-1.6)
== END ==
PROVIDERS: PCP Family Medicine; Visit Provider Physician Assistant
DX: Z12.5 Encounter for screening for malignant neoplasm of prostate (principal); E11.65 Type 2 diabetes mellitus with hyperglycemia; E78.5 Hyperlipidemia, unspecified; I10 Essential (primary) hypertension; Z79.899 Other long term (current) drug therapy
CPT/HCPCS: 80053; 80061; 82043; 82570; 83036; 85025; G0103